=== PATIENT | female | born 1965 | race Caucasian/White ===

== ENCOUNTER 2017-08-28 17:40 | Emergency (ER) | payer OTHER | END 2017-08-28 18:32 | disposition home or self-care (01) | LOC: E/R 18:32 | DX: R21 Rash and other nonspecific skin eruption (principal) | CPT/HCPCS: 99284; Z7502 ==

== ENCOUNTER 2017-11-10 10:23 | Emergency (ER) | payer OTHER | END 2017-11-10 11:10 | disposition home or self-care (01) | LOC: FTE 10:23 | DX: R21 Rash and other nonspecific skin eruption (principal) | CPT/HCPCS: 99284; Z7502 ==

== ENCOUNTER 2018-02-15 16:16 | Emergency (ER) | payer SELFPAY, OTHER | END 2018-02-15 17:15 | disposition left against medical advice (07) | LOC: FTE 17:15 | DX: Z53.21 Procedure and treatment not carried out due to patient leaving prior to being seen by health care provider (principal) ==

== ENCOUNTER 2018-04-20 23:44 | Inpatient (IN) | payer OTHER ==
[2018-04-21] MEDS: SOD CHLORIDE 0.9% 1,000 ML IV ×4 (00:06→20:13)
[2018-04-21] MEDS: METHYLPREDNISOLONE 125 MG INJ IV (00:11)
[2018-04-21] MEDS: EPINEPHrine 1 MG INJ IV ×2 (00:11→01:48)
[2018-04-21 00:12] LABS: ADD MAN DIFF? NO
[2018-04-21 00:13] LABS: BASOPHILS % 0.3 % (0.0-2.0); EOSINOPHILS # 0.2 10^3/ul (0.0-0.5); EOSINOPHILS % 2.4 % (0.0-7.0); HEMATOCRIT 41.2 % (37.0-47.0); HEMOGLOBIN 13.1 g/dl (12.0-16.0); LYMPHOCYTES # 4.5 10^3/ul (0.8-2.9); LYMPHOCYTES % 63.3 % (15.0-51.0); MEAN CORPUSCULAR HEMOGLOBIN 26.9 pg (29.0-33.0); MEAN CORPUSCULAR HGB CONC 31.8 g/dl (32.0-37.0); MEAN CORPUSCULAR VOLUME 84.6 fl (82.0-101.0); MEAN PLATELET VOLUME 8.7 fl (7.4-10.4); MONOCYTE # 0.3 10^3/ul (0.3-0.9); MONOCYTES % 4.6 % (0.0-11.0); NEUTROPHIL # 2.1 10^3/ul (1.6-7.5); NEUTROPHILS % 29.3 % (39.0-77.0); PLATELET COUNT 368 10^3/UL (140-415); RED BLOOD COUNT 4.87 10^6/ul (4.20-5.40); RED CELL DISTRIBUTION WIDTH 11.9 % (11.5-14.5)
[2018-04-21 00:13] LABS: WHITE BLOOD COUNT 7.2 10^3/ul (4.8-10.8)
[2018-04-21] MEDS: ALBUTEROL 0.083% (NEB) 2.5 MG/3 ML AMP INH ×2 (00:16)
[2018-04-21] MEDS: DIPHENHYDRAMINE 50 MG INJ IV (00:17)
[2018-04-21 00:35] LABS: ALANINE AMINOTRANSFERASE 13 IU/L (13-69); ALBUMIN/GLOBULIN RATIO 1.17; ALKALINE PHOSPHATASE 71 IU/L (42-121); ANION GAP 11 (5-13); ASPARTATE AMINO TRANSFERASE 19 IU/L (15-46); BILIRUBIN,INDIRECT 0.5 mg/dl (0-1.1); BILIRUBIN,TOTAL 0.5 mg/dl (0.2-1.3); BLOOD UREA NITROGEN 18 mg/dl (7-20); CALCIUM 8.9 mg/dl (8.4-10.2); CARBON DIOXIDE 24 mmol/L (21-31); CHLORIDE 104 mmol/L (97-110); CREATININE 0.63 mg/dl (0.44-1.00); Estimated GFR > 60 mL/min (>60); GLUCOSE 167 mg/dl (70-220); POTASSIUM 3.5 mmol/L (3.5-5.1); SODIUM 139 mmol/L (135-144); TOTAL PROTEIN 7.4 g/dl (6.1-8.1)
[2018-04-21 00:47] LABS: TROPONIN-I < 0.012 ng/ml (0.000-0.120)
[2018-04-21] MEDS ORDERED: DOCUSATE SODIUM 100 MG CAP PO (10:00)
[2018-04-21] MEDS ORDERED: NACL 0.9% 3 ML SYG IV (10:00)
[2018-04-21] MEDS ORDERED: HYDROCODONE/APAP (5/325) TAB PO (10:00)
[2018-04-21] MEDS ORDERED: DIPHENHYDRAMINE 50 MG INJ IV (10:00)
[2018-04-21] MEDS ORDERED: ACETAMINOPHEN 325 MG TAB PO (10:00)
[2018-04-21] MEDS ORDERED: METHYLPREDNISOLONE (MEDROL) DOSE PACK PO (10:00)
[2018-04-21] MEDS ORDERED: ONDANSETRON 4 MG INJ IV (10:00)
[2018-04-21] MEDS ORDERED: PANTOPRAZOLE 40 MG INJ (10:15)
[2018-04-21] MEDS: PANTOPRAZOLE 40 MG INJ IV (10:35)
[2018-04-21] MEDS: METHYLPREDNISOLONE 4 MG TAB PO (11:58)
[2018-04-22] MEDS: SOD CHLORIDE 0.9% 1,000 ML IV (05:26)
[2018-04-22] MEDS ORDERED: PANTOPRAZOLE 40 MG INJ IV (06:00)
[2018-04-22] MEDS: METHYLPREDNISOLONE 4 MG TAB PO (06:07)
[2018-04-22] MEDS: PANTOPRAZOLE (EC) 40 MG TAB PO (06:07)
[2018-04-22] MEDS ORDERED: ENOXAPARIN 40 MG/0.4 ML SYG SC (09:00)
[2018-04-22] MEDS ORDERED: METHYLPREDNISOLONE 4 MG TAB PO ×3 (13:00→21:00)
[2018-04-23] MEDS ORDERED: METHYLPREDNISOLONE 4 MG TAB PO (21:00)
== END 2018-04-22 11:05 | disposition home or self-care (01) | DRG 916 ==
LOC: E/R 23:44 → 2NE 04-21 03:14
DX: T88.6XXA Anaphylactic reaction due to adverse effect of correct drug or medicament properly administered, initial encounter (principal); T78.01XA Anaphylactic reaction due to peanuts, initial encounter; T39.395A Adverse effect of other nonsteroidal anti-inflammatory drugs [NSAID], initial encounter; I95.9 Hypotension, unspecified
CPT/HCPCS: 36415; 71045; 80053; 84484; 85025; 90686; 93005; 94664; 96361; 96374; 96375; 96376; 99291-25

== ENCOUNTER 2018-12-19 04:53 | Emergency (ER) | payer OTHER ==
[2018-12-19] MEDS: DIPHENHYDRAMINE 50 MG CAP PO (05:29)
[2018-12-19] MEDS: METHYLPREDNISOLONE 125 MG INJ IM (05:31)
[2018-12-19] MEDS ORDERED: DIPHENHYDRAMINE 50 MG INJ (05:56)
== END 2018-12-19 05:45 | disposition home or self-care (01) ==
LOC: FTE 04:53
DX: R21 Rash and other nonspecific skin eruption (principal); Z91.010 Allergy to peanuts
CPT/HCPCS: 96372; 99284-25

== ENCOUNTER 2018-12-20 02:56 | Emergency (ER) | payer OTHER ==
[2018-12-20] MEDS: DIPHENHYDRAMINE 50 MG INJ IV (04:00)
[2018-12-20] MEDS: METHYLPREDNISOLONE 125 MG INJ IV (04:00)
[2018-12-20] MEDS: FAMOTIDINE 20 MG INJ IV (04:00)
== END 2018-12-20 04:56 | disposition home or self-care (01) ==
LOC: E/R 02:56
DX: L50.0 Allergic urticaria (principal); Z91.010 Allergy to peanuts
CPT/HCPCS: 96374; 96375; 99284-25